=== PATIENT | female | born 1970 | race Caucasian/White ===

== ENCOUNTER 2022-03-27 07:58 | Emergency (ER) | payer OTHER ==
[~2022-03-27] VITALS: Ht 157.5 cm; Wt 104.3 kg
[~2022-03-27 07:58] MED LIST: CLEOCIN HCL300 MG PO; NORCO 5-325 TA1 EACH PO; ONDANSETRON ODT4 MG PO; TOPROL XL 25MG25 MG PO
[2022-03-27] MEDS ORDERED: ATORVASTATIN CA10 MG PO (08:13)
[2022-03-27] MEDS ORDERED: TRULICITY4.5 MG/0.5 SC (08:14)
[2022-03-27] MEDS ORDERED: ZOLOFT100 MG PO (08:15)
[2022-03-27] MEDS ORDERED: ONDANSETRON ODT4 MG PO (11:45)
[2022-03-27] MEDS ORDERED: NORCO 5-325 TA1 EACH PO (11:45)
[2022-03-27] MEDS ORDERED: VIBRAMYCIN100 MG PO (11:45)
[2022-03-27] MEDS ORDERED: VENTOLIN HFA18 GM INH (12:36)
== END 2022-03-27 12:40 | disposition home or self-care (01) ==
LOC: FER 07:58
DX: S86.012A Strain of left Achilles tendon, initial encounter (principal); M94.0 Chondrocostal junction syndrome [Tietze]; E11.9 Type 2 diabetes mellitus without complications; Z91.040 Latex allergy status; Z88.1 Allergy status to other antibiotic agents; Z79.4 Long term (current) use of insulin; W17.89XA Other fall from one level to another, initial encounter
CPT/HCPCS: 71250